=== PATIENT | male | born 1990 | race Caucasian/White ===

== ENCOUNTER 2024-05-14 08:16 | Emergency (ER) | payer BC, SELFPAY ==
[2024-05-14 08:25] VITALS: BP 148/94; PULSE 70; TEMP 36.6; O2SAT 99; BMI 30.5
--- NOTE | 2024-05-14 08:45 | CT_ITS ---
The [address] [address] Patient Name: CHRISTIE POPE MRN: [id number] date: 1990 Sex: M Assigned Patient Location: ER Current Patient Location: ER Accession/Order Number: [id number] Exam Date: 05/14/2024 09:20 Report Date: 05/14/2024 09:45 At the request of: TERESO BLACKMON Procedure: CT lumbar spine wo con CT lumbar spine wo con: 05/14/2024 9:20 AM EST HISTORY: Low back pain which has become worse over the past week. Pain worse on the left than the right. COMPARISON: Radiographs lumbar spine 10/21/2021. TECHNIQUE: Multiple contiguous axial CT images of the lumbar spine were obtained without contrast. Sagittal and coronal reformatted images were made. Dose reduction techniques were achieved by using automated exposure control and/or adjustment of mA and/or kV according to patient size and/or use of iterative reconstruction technique. FINDINGS: The right kidney is severely atrophic. There is no atrophy of the left kidney. There are multiple punctate nonobstructing calculi involving the upper and lower pole of the left kidney. There is no hydronephrosis of the left kidney. There are moderate degenerative changes of the right sacroiliac joint and mild degenerative changes of the left sacroiliac joint. No compression fracture or subluxation is seen. There is mild discogenic disease at the T12-L1 level with a small Schmorl's node deformity and adjacent sclerosis involving the inferior endplate of T12. There is also mild discogenic disease at the L1-L2 level with a small Schmorl's node deformity and adjacent sclerosis involving the left inferior and plate of L1. There is mild discogenic disease at the L5-S1 level. No pars defect is seen. L1-L2 level: No significant disc protrusion, spinal canal stenosis, or foraminal narrowing is seen. L2-L3 level: No significant disc protrusion, spinal canal stenosis, or foraminal narrowing is seen. L3-L4 level: No significant disc protrusion, spinal canal stenosis, or foraminal narrowing is seen. There is mild facet joint arthropathy on the right. L4-L5 level: No significant disc protrusion, spinal canal stenosis, or foraminal narrowing is seen. L5-S1 level: There is a small posterior disc-osteophyte complex. However, there is no spinal canal stenosis or foraminal narrowing. There is mild facet joint arthropathy. CT/CT lumbar spine wo con IMPRESSION: 1. No compression fracture, subluxation, spinal canal stenosis or foraminal narrowing is seen. 2. There is mild multilevel discogenic disease and mild facet joint arthropathy of the lumbar spine as described above. 3. There are moderate degenerative changes of the right sacroiliac joint and mild degenerative changes of the left sacroiliac joint. 4. There are multiple punctate nonobstructing calculi of the left kidney without evidence of hydronephrosis. There is severe atrophy of the right kidney. Electronically authenticated by: LAKEISHA BROWN Date: 05/14/2024 09:45
--- NOTE | 2024-05-14 09:43 | ED.BACK1 ---
HPI HPI - Back Pain/Injury General Chief Complaint: Back Pain/Injury Stated Complaint: back pain Time Seen by Provider: 05/14/24 08:18 Source: patient Mode of arrival: walk-in History of Present Illness HPI Narrative: 34-year-old male presents for lower back pain. Its primarily on the left side and was not associated with any trauma. He has been having this issue for about a year but got worse in the last week. He states he had an x-ray done that showed degenerative changes and he was put on some medicine by his physician and he is currently been on meloxicam. No weakness or numbness or injury. Related Data Home Medications ?Medication ?Instructions ?Recorded ?Confirmed desvenlafaxine succinate 50 mg mg PO 05/14/24 tablet,extended release 24 hr indomethacin 50 mg capsule mg 05/14/24 meloxicam 15 mg tablet mg 05/14/24 metoprolol tartrate 25 mg tablet mg 05/14/24 valacyclovir 1 gram tablet mg 05/14/24 Previous Rx's ?Medication ?Instructions ?Recorded acetaminophen 300 mg-codeine 30 mg 1 tab PO Q6H PRN pain #20 tabs 05/14/24 tablet methocarbamol 500 mg tablet 500 mg PO Q8H PRN pain #20 tabs 05/14/24 Allergies Allergy/AdvReac Type Severity Reaction Status Date / Time No Known Drug Allergies Allergy Verified 05/14/24 08:25 Opioid HPI Opioid Management Most Recent Opioid Data: No Data to Display Review of Systems ROS Narrative A ten point review of systems is negative except as noted above. PFSH PFSH Social History Little interest or pleasure in doing things: not at all Feeling down, depressed, or hopeless: not at all Exam Narrative Exam Narrative: Nurses note and vital signs reviewed and patient is not hypoxic. General: The patient appears well and in no apparent distress. Patient is resting comfortably on cart. Skin: Warm, dry, no pallor noted. There is no rash noted. Head: Normocephalic, atraumatic Eye: Normal conjunctiva, no drainage Ears, Nose, Mouth, and Throat: oral mucosa is moist. Nares patent. Cardiovascular: Regular Rate and Rhythm Respiratory: Patient is in no distress, no accessory muscle use, lungs are clear to auscultation, no wheezing, rales or rhonchi Back: non-tender, no bruise or rash or focal area of tenderness to palpation GI: Soft and nontender Musculoskeletal: The patient has no evidence of calf tenderness, no pitting edema, symmetrical pulses noted bilaterally Neurological: A&O normal speech; upper and lower extremity strength is symmetric and intact Psychiatric: Cooperative Constitutional Vital Signs, click to edit/add: Last Vital Signs Temp 98 F 05/14/24 08:25 Pulse 70 05/14/24 08:25 Resp 20 05/14/24 08:25 BP 148/94 H 05/14/24 08:25 Pulse Ox 99 05/14/24 08:25 Course Vital Signs Vital signs: Vital Signs Temperature 98 F 05/14/24 08:25 Pulse Rate 70 05/14/24 08:25 Respiratory Rate 20 05/14/24 08:25 Blood Pressure 148/94 H 05/14/24 08:25 Pulse Oximetry 99 05/14/24 08:25 Temperature 98 F 05/14/24 08:25 Pulse Rate 70 05/14/24 08:25 Respiratory Rate 20 05/14/24 08:25 Blood Pressure 148/94 H 05/14/24 08:25 Pulse Oximetry 99 05/14/24 08:25 MDM - Back Pain/Injury MDM Narrative Medical decision making narrative: CT scan findings are discussed with the patient. He is provided pain medication and will follow-up with his PCP. Treatment diagnosis and follow-up were discussed with the patient. Differential Diagnosis Differential diagnosis: Likely lumbar radiculopathy, sciatica, strain of lumbar region and other (Degenerative disc disease, lumbar fracture) Imaging Data Lumbar CT: Radiologist's impression: ITS Impressions Lumbar Spine CT 05/14/24 08:45 IMPRESSION: 1. No compression fracture, subluxation, spinal canal stenosis or foraminal narrowing is seen. 2. There is mild multilevel discogenic disease and mild facet joint arthropathy of the lumbar spine as described above. 3. There are moderate degenerative changes of the right sacroiliac joint and mild degenerative changes of the left sacroiliac joint. 4. There are multiple punctate nonobstructing calculi of the left kidney without evidence of hydronephrosis. There is severe atrophy of the right kidney. Electronically authenticated by: LAKEISHA BROWN Date: 05/14/2024 09:45 Discharge Plan Discharge Chief Complaint: Back Pain/Injury Clinical Impression: Low back pain Patient Disposition: Home, Self-Care Time of Disposition Decision: 09:59 Condition: Good Mode of Transportation: Private Vehicle Prescriptions / Home Meds: New methocarbamol 500 mg tablet 500 mg PO Q8H PRN (Reason: pain) Qty: 20 0RF acetaminophen-codeine 300-30 mg tablet 1 tab PO Q6H PRN (Reason: pain) Qty: 20 0RF No Action valacyclovir 1 gram tablet meloxicam 15 mg tablet indomethacin 50 mg capsule metoprolol tartrate 25 mg tablet desvenlafaxine succinate 50 mg tablet extended release 24 hr PO Print Language: Malaysian Referrals: Lakeisha Park MD [Primary Care Provider] - 1 week
[2024-05-14] MEDS: KETOROLAC TROMETHAMINE 60 MG/2 ML VIAL IM (10:16)
== END 2024-05-14 10:24 | disposition home or self-care (01) ==
PROVIDERS: Emergency Provider Emergency Medicine; PCP Family Medicine
DX: M54.50 Low back pain, unspecified (principal)
CPT/HCPCS: 72131; 96372; 99284; J1885